=== PATIENT | male | born 1995 | race African-American/Black ===

== ENCOUNTER 2016-11-22 12:31 | Emergency (ER) | payer OTHER ==
--- NOTE | ~2016-11-22 | CR127 ---
[facility] A Service of [facility] & [facility] RADIOLOGY TEXT RESULTS PATIENT: LETI LEUNG LOCATION: CFTX : 93 UNIT #: [id number] AGE: [address]: Katey Baker SEX: M ORDER DR: [id number] [facility] [address] [place], [place] [address] [id number] E MR#: [id number] Acc #: [id number] NAME: LETI LEUNG. : 1995 SEX: M STUDY DATE/TIME: 11/22/2016 12:20 UNIT: [facility] ROOM: STUDY DESCRIPTION: CR Foot Complete Min 3 View Rt Attending Physician: Katey Baker P.A.-C. Ordering Physician: Katey Baker P.A.-C. Primary Care Physician: [facility] MEDICAL IMAGING REPORT This report is preliminary unless electronic signature is present EXAM Right foot, 3 views, 11/22/2016, 1220 hours. CLINICAL HISTORY Patient hit lower leg on pole playing basketball yesterday. Foot pain. COMPARISON None FINDINGS AP, lateral, and oblique views demonstrate no fracture or dislocation. IMPRESSION Negative left foot. Dictated by... Farhana Judge M.D. THIS IS AN ELECTRONICALLY VERIFIED REPORT Farhana Judge M.D. at 11/22/2016 3:07 PM MEAGAN/vicki TD: 11/22/2016 14:07 JOB #: [id number] MEDICAL IMAGING REPORT Page 1 of 1 COPY
--- NOTE | ~2016-11-22 | CR253 ---
[facility] A Service of [facility] & [facility] RADIOLOGY TEXT RESULTS PATIENT: LETI LEUNG LOCATION: CFTX : 93 UNIT #: [id number] AGE: [address]: Katey Baker SEX: M ORDER DR: [id number] [facility] [address] [place], [place] [address] [id number] E MR#: [id number] Acc #: [id number] NAME: LETI LEUNG. : 1995 SEX: M STUDY DATE/TIME: 11/22/2016 12:20 UNIT: [facility] ROOM: STUDY DESCRIPTION: CR Tibia and Fibula 2 Views Rt Attending Physician: Katey Baker P.A.-C. Ordering Physician: Katey Baker P.A.-C. Primary Care Physician: [facility] MEDICAL IMAGING REPORT This report is preliminary unless electronic signature is present EXAM Right tibia and fibula 11/22/2016 1220 hours HISTORY 21-year-old man complaining of lower leg and foot pain for 1 day after hitting leg on pole while playing basketball. COMPARISON None. FINDINGS AP and cross-table lateral views demonstrate a normal appearance to the tibia and fibula. No fracture seen. IMPRESSION Negative right lower leg. Dictated by... Farhana Judge M.D. THIS IS AN ELECTRONICALLY VERIFIED REPORT Farhana Judge M.D. at 11/22/2016 3:07 PM Abel TD: 11/22/2016 14:06 JOB #: [id number] MEDICAL IMAGING REPORT Page 1 of 1 COPY
== END 2016-11-22 13:05 | disposition home or self-care (01) ==
LOC: CFTX 12:31
DX: S96.911A Strain of unspecified muscle and tendon at ankle and foot level, right foot, initial encounter (principal); S90.01XA Contusion of right ankle, initial encounter; W21.05XA Struck by basketball, initial encounter
CPT/HCPCS: 29540; 73590; 73630; 99284